=== PATIENT | male | born 1930 | race Hispanic/Latino ===

== ENCOUNTER 2018-06-18 10:51 | Emergency (ER) | payer MEDICARE ==
[2018-06-18 10:51] VITALS: PULSE 60; BMI 23.3
[2018-06-18 11:20] VITALS: TEMP 97.6
[2018-06-18] MEDS ORDERED: Albuterol-Ipratrop 3 mg / 0.5 (3 ml) UD INH STA (11:44)
[2018-06-18] MEDS ORDERED: Albuterol-Ipratrop 3 mg / 0.5 (3 ml) UD ONE (11:52)
[2018-06-18 12:16] LABS: VENOUS BLOOD GAS BASE EXCESS 8.3 mmol/L (0.0-2.0); VENOUS BLOOD GAS PCO2 47 mmHg (40-60); VENOUS BLOOD GAS PO2 11 mm/Hg (30-55); VENOUS BLOOD PH 7.46 (7.32-7.43)
[2018-06-18 12:17] LABS: BASO # 0.1 K/uL (0.0-0.2); BASO % 1.3 % (0.0-2.0); EOS # 0.1 K/uL (0.0-0.7); EOS % 0.7 % (0.0-4.0); HEMOGLOBIN 12.1 g/dL (12.0-18.0); LYMPH # 1.4 K/uL (1.0-4.3); LYMPH % 19.2 % (20.0-40.0); MEAN CELL VOLUME 95.4 fl (80.0-94.0); MEAN CORPUSCULAR HEMOGLOBIN 31.6 pg (27.0-31.0); MEAN CORPUSCULAR HGB CONC 33.1 g/dL (33.0-37.0); MEAN PLATELET VOLUME 9.3 fl (7.2-11.7); MONO # 0.8 K/uL (0.0-0.8); MONO % 10.4 % (0.0-10.0); NEUT # 5.1 K/uL (1.8-7.0); NEUT % 68.4 % (50.0-75.0); RBC 3.82 Mil/uL (4.40-5.90); RED CELL DISTRIBUTION WIDTH 15.7 % (11.5-14.5); WHITE BLOOD COUNT 7.5 K/uL (4.8-10.8)
[2018-06-18 12:23] LABS: INR 1.7; PROTHROMBIN TIME 19.2 Seconds (9.8-13.1)
[2018-06-18 12:26] LABS: PARTIAL THROMBOPLASTIN TIME 48.3 Seconds (25.6-37.1)
[2018-06-18 12:28] LABS: ABG ALLEN TEST YES; ARTERIAL BLOOD GAS HCO3 30.1 mmol/L (21-28); ARTERIAL BLOOD GAS O2 SAT 100.6 % (95-98); ARTERIAL BLOOD GAS PCO2 27 mm/Hg (35-45); ARTERIAL BLOOD GAS PH 7.61 (7.35-7.45); ARTERIAL BLOOD GAS PO2 124 mm/Hg (80-100); ARTERIAL BLOOD GAS TCO2 27.9 mmol/L (22-28)
[2018-06-18 12:41] LABS: TROPONIN I 0.025 ng/mL (0.00-0.120)
[2018-06-18 15:08] LABS: BASO # 0.1 K/uL (0.0-0.2); BASO % 0.8 % (0.0-2.0); EOS % 0.4 % (0.0-4.0); HEMOGLOBIN 11.5 g/dL (12.0-18.0); INR 1.8; LYMPH # 1.5 K/uL (1.0-4.3); LYMPH % 21.2 % (20.0-40.0); MEAN CELL VOLUME 94.5 fl (80.0-94.0); MEAN CORPUSCULAR HEMOGLOBIN 31.7 pg (27.0-31.0); MEAN CORPUSCULAR HGB CONC 33.5 g/dL (33.0-37.0); MEAN PLATELET VOLUME 9.7 fl (7.2-11.7); MONO # 0.7 K/uL (0.0-0.8); MONO % 10.5 % (0.0-10.0); NEUT # 4.7 K/uL (1.8-7.0); NEUT % 67.1 % (50.0-75.0); PROTHROMBIN TIME 20.3 Seconds (9.8-13.1); RBC 3.63 Mil/uL (4.40-5.90); RED CELL DISTRIBUTION WIDTH 15.4 % (11.5-14.5)
[2018-06-18 15:11] LABS: PARTIAL THROMBOPLASTIN TIME 45.4 Seconds (25.6-37.1)
[2018-06-18 15:18] LABS: ALB/GLOB RATIO 1.1 (1.0-2.1); ALBUMIN 3.8 g/dL (3.5-5.0)
--- NOTE | 2018-06-18 15:18 | RAD ---
Date of service: 06/18/2018 HISTORY: Chest pressure COMPARISON: 08/16/2014 FINDINGS: LUNGS: Chronic interstitial lung disease. PLEURA: Pleural plaques consistent with prior asbestos exposure. CARDIOVASCULAR: Atherosclerotic calcifications identified primarily aortic arch. No radiographic findings to suggest acute or significant cardiovascular disease. Position/ configuration of pacemaker device: Satisfactory. OSSEOUS STRUCTURES: No significant abnormalities. VISUALIZED UPPER ABDOMEN: Normal. OTHER FINDINGS: None. IMPRESSION: No active disease. No significant interval change compared to the prior examination(s).
[2018-06-18 15:23] LABS: TROPONIN I 0.021 ng/mL (0.00-0.120)
[2018-06-18 16:40] VITALS: RESP 20; O2SAT 96
[2018-06-18 17:30] VITALS: BP 133/68; PULSE 79
--- NOTE | 2018-06-18 17:49 | ED PDOC ---
HPI: SOB/CHF/COPD Time Seen by Provider: 06/18/18 11:33 Chief Complaint (Nursing): Shortness Of Breath Chief Complaint (Provider): SOB today History Per: Patient, Family History/Exam Limitations: no limitations Onset/Duration Of Symptoms: Hrs Current Symptoms Are (Timing): Still Present Exacerbating Factor(s): Other (at rest ) Associated Symptoms: denies: Fever, Chills, Sweating, Chest Pain, Bloody Cough, Productive Cough, Heart Racing, Leg/Calf Pain, Ankle/Leg Swelling, Dizziness, Light-headedness, Anxiety, Tingling In Hands Or Face, Musle Spasms In Hands Or Feet Additional Complaint(s): 88 yo male with HTN, CHF and history of mass in lung which was surgically removed 10 years ago presents for evaluation of SOB. PT states he has a dry cough today but he always has a slight cough due to smokign history. Pt states he also felt SOB this morning. Pt states he always feels a little SOB since his mass was removed but this morning it was worse. Pt denies chest pain, palpitations, sweating. Past Medical History Reviewed: Historical Data, Nursing Documentation, Vital Signs Vital Signs: Last Vital Signs Temp 97.6 F 06/18/18 11:19 Pulse 79 06/18/18 17:29 Resp 20 06/18/18 17:29 BP 133/68 06/18/18 17:29 Pulse Ox 96 06/18/18 17:29 - Medical History PMH: Atrial Fibrillation, CHF, HTN Denies: HIV, Chronic Kidney Disease - Surgical History Surgical History: Pacemaker - Family History Family History: States: No Known Family Hx - Living Arrangements Living Arrangements: With Family - Social History Current smoker - smoking cessation education provided: No Alcohol: None - Home Medications Home Medications: Ambulatory Orders Medication Instructions Recorded Febuxostat [Uloric] 40 mg PO DAILY 08/16/14 Finasteride 5 mg PO DAILY 08/16/14 Digoxin [Digitek] 125 mcg PO DAILY 06/18/18 Furosemide [Lasix] 40 mg PO DAILY 06/18/18 Lisinopril [Zestril] 5 mg PO DAILY 06/18/18 Warfarin [Coumadin] 2 mg PO Q48H 06/18/18 Warfarin [Coumadin] 3 mg PO Q48H 06/18/18 - Allergies Allergies/Adverse Reactions: Allergies Allergy/AdvReac Type Severity Reaction Status Date / Time No Known Allergies Allergy Verified 06/18/18 11:20 Review of Systems ROS Statement: Except As Marked, All Systems Reviewed And Found Negative Constitutional: Negative for: Fever, Chills Cardiovascular: Negative for: Chest Pain, Palpitations, Orthopnea Respiratory: Positive for: Cough, Shortness of Breath. Negative for: Pleuritic Pain, Sputum Gastrointestinal: Negative for: Nausea, Vomiting, Abdominal Pain Physical Exam - Reviewed Nursing Documentation Reviewed: Yes Vital Signs Reviewed: Yes - Physical Exam Appears: Positive for: Well, Non-toxic, No Acute Distress Head Exam: Positive for: ATRAUMATIC, NORMAL INSPECTION, NORMOCEPHALIC Skin: Positive for: Normal Color, Warm, DRY Eye Exam: Positive for: Normal appearance ENT: Positive for: Normal ENT Inspection Neck: Positive for: Normal, Painless ROM Cardiovascular/Chest: Positive for: Regular Rate, Rhythm Respiratory: Positive for: Normal Breath Sounds. Negative for: Accessory Muscle Use, Respiratory Distress Gastrointestinal/Abdominal: Positive for: Normal Exam, Soft Back: Positive for: Normal Inspection Extremity: Positive for: Normal ROM Neurologic/Psych: Positive for: Alert, Oriented - Laboratory Results Result Diagrams: 06/18/18 14:00 06/18/18 14:00 - ECG O2 Sat by Pulse Oximetry: 96 Medical Decision Making Medical Decision Making: CBC normal, CXR without acute cardiopulmonary disease. Elevated pro BNP. Troponin negative. Pt seen and examined with Dr. Manzanares. Discussed giving additional dose of lasix and possible observation. Pt seen and examined by Dr. Randhawa. Pt stable for discharge. PT reports feeling better on re-evaluation. oxygen 97-98% on room air. Called Dr. Hill for f/u. 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 Disposition - Clinical Impression Clinical Impression: CHF (congestive heart failure) - Patient ED Disposition Is Patient to be Admitted: No Counseled Patient/Family Regarding: Diagnosis, Need For Followup - Disposition Referrals: Adalberto Hill MD [Family Provider] - Disposition: Routine/Home Disposition Time: 17:53 Condition: GOOD Instructions: Heart Healthy Diet, Heart Failure and Atrial Fibrillation Print Language: TELUGU
--- NOTE | 2018-06-18 17:57 | CP.PCM.CON ---
History of Present Illness - History of Present Illness History of Present Illness: CC: shortness of breath HPI: This is a francis 88 male PMH CHF, HTN, interstitial lung dz? presents to the ED with a one day history of worsening dry cough, with associated mild dyspnea. Upon arrival to ED, patient had a 2L NC O2 requirement to maintain sats, however was breathing comfortably, without any signs of distress, speaking in full sentences without difficulty, no peripheral edema, no JVD. Patient BNP was found to be appx 2000, and was administered Lasix 40 IV ONCE. He was reevaluated a couple hours later with significant improved, no longer felt dyspneic, good UOP, and no longer required O2. Patient CXR also did not d emonstrate any acute pathology. Patient is HD stable, in no acute distress, and symptoms have resolved. Patient is stable to be discharged with his home medications, and advised to follow up with primary care physician within one week. ROS: per HPI all other systems reviewed and negative. Past Patient History - Infectious Disease Hx of Infectious Diseases: None - Tetanus Immunizations Tetanus Immunization: Unknown - Past Medical History & Family History Past Medical History?: Yes - Past Social History Smoking Status: Former Smoker - CARDIAC Hx Atrial Fibrillation: Yes Hx Congestive Heart Failure: Yes Hx Hypertension: Yes Hx Pacemaker: Yes - PULMONARY Hx Lung Cancer: Yes (Left Upper Lobectomy, 4 yrs ago) - NEUROLOGICAL Hx Neurological Disorder: No - HEENT Hx HEENT Problems: No - RENAL Hx Chronic Kidney Disease: No - ENDOCRINE/METABOLIC Hx Endocrine Disorders: No - HEMATOLOGICAL/ONCOLOGICAL Hx Human Immunodeficiency Virus (HIV): No - INTEGUMENTARY Hx Dermatological Problems: No - MUSCULOSKELETAL/RHEUMATOLOGICAL Hx Musculoskeletal Disorders: No Hx Falls: No - GASTROINTESTINAL Hx Gastrointestinal Disorders: No - GENITOURINARY/GYNECOLOGICAL Hx Genitourinary Disorders: Yes Hx Prostate Problems: Yes (on Proscar) - PSYCHIATRIC Hx Psychophysiologic Disorder: No Hx Substance Use: No - SURGICAL HISTORY Hx Surgeries: Yes Hx Pulmonary Surgery: Yes (lobectomy 4 years ago) Other/Comment: Left knee procedure, pacemaker - ANESTHESIA Hx Anesthesia: Yes Hx Anesthesia Reactions: No Meds Allergies/Adverse Reactions: Allergies Allergy/AdvReac Type Severity Reaction Status Date / Time No Known Allergies Allergy Verified 06/18/18 11:20 Physical Exam - Constitutional Appears: Non-toxic, No Acute Distress - Head Exam Head Exam: ATRAUMATIC, NORMOCEPHALIC - Eye Exam Eye Exam: EOMI, Normal appearance, PERRL Pupil Exam: NORMAL ACCOMODATION - ENT Exam ENT Exam: Mucous Membranes Moist, Normal Oropharynx - Respiratory Exam Respiratory Exam: Clear to Auscultation Bilateral, NORMAL BREATHING PATTERN - Cardiovascular Exam Cardiovascular Exam: RRR, +S1, +S2 - GI/Abdominal Exam GI & Abdominal Exam: Normal Bowel Sounds, Soft - Extremities Exam Extremities exam: Positive for: normal capillary refill, pedal pulses present - Back Exam Back exam: absent: CVA tenderness (L), CVA tenderness (R) - Neurological Exam Neurological exam: Alert, Oriented x3 - Psychiatric Exam Psychiatric exam: Normal Affect, Normal Mood - Skin Skin Exam: Dry, Warm Results - Vital Signs Recent Vital Signs: Last Vital Signs Temp 97.6 F 06/18/18 11:19 Pulse 79 06/18/18 17:29 Resp 20 06/18/18 17:29 BP 133/68 06/18/18 17:29 Pulse Ox 96 06/18/18 17:49 - Labs Result Diagrams: 06/18/18 14:00 06/18/18 14:00 Labs: Laboratory Results - last 24 hr 06/18/18 06/18/18 06/18/18 12:05 12:05 12:05 WBC 7.5 RBC 3.82 L Hgb 12.1 Hct 36.4 MCV 95.4 H MCH 31.6 H MCHC 33.1 RDW 15.7 H Plt Count 172 MPV 9.3 Neut % (Auto) 68.4 Lymph % (Auto) 19.2 L [place] % (Auto) 10.4 H Eos % (Auto) 0.7 Baso % (Auto) 1.3 Neut # (Auto) 5.1 Lymph # (Auto) 1.4 [place] # (Auto) 0.8 Eos # (Auto) 0.1 Baso # (Auto) 0.1 PT 19.2 H INR 1.7 APTT 48.3 H pCO2 pO2 HCO3 ABG pH ABG Total CO2 ABG O2 Saturation ABG Base Excess Vasquez Test ABG Potassium VBG pH VBG pCO2 VBG HCO3 VBG Total CO2 VBG O2 Sat (Calc) VBG Base Excess VBG Potassium A-a O2 Difference Sodium Chloride Glucose Lactate FiO2 Blood Gas Comments Crit Value Called To Crit Value Called By Crit Value Read Back Blood Gas Notified Time Potassium Carbon Dioxide Anion Gap BUN Creatinine Est GFR ( Amer) Est GFR (Non-Af Amer) Random Glucose Calcium Phosphorus 2.4 L Magnesium 2.2 Total Bilirubin AST ALT Alkaline Phosphatase Troponin I 0.0250 NT-Pro-B Natriuret Pep 2320 H Total Protein Albumin Globulin Albumin/Globulin Ratio Arterial Blood Potassium Venous Blood Potassium 06/18/18 06/18/18 06/18/18 12:09 12:20 14:00 WBC RBC Hgb Hct MCV MCH MCHC RDW Plt Count MPV Neut % (Auto) Lymph % (Auto) [place] % (Auto) Eos % (Auto) Baso % (Auto) Neut # (Auto) Lymph # (Auto) [place] # (Auto) Eos # (Auto) Baso # (Auto) PT INR APTT pCO2 27 L pO2 11 L 124 H HCO3 30.1 H ABG pH 7.61 H* ABG Total CO2 27.9 ABG O2 Saturation 100.6 H ABG Base Excess 6.5 H Vasquez Test Yes ABG Potassium 4.3 VBG pH 7.46 H VBG pCO2 47 VBG HCO3 29.1 VBG Total CO2 34.8 H VBG O2 Sat (Calc) 18.2 L VBG Base Excess 8.3 H VBG Potassium 5.4 H A-a O2 Difference 42.0 Sodium 139.0 137.0 139 Chloride 103.0 106.0 103 Glucose 59 L 101 Lactate 2.5 H 1.8 FiO2 21.0 28.0 Blood Gas Comments Lac=2.5 Ph=7.61 Crit Value Called To julio Olivas haviva Crit Value Called By Crit Value Read Back Y Y Blood Gas Notified Time 1216 1227 Potassium 4.4 Carbon Dioxide 25 Anion Gap 15 BUN 30 H Creatinine 1.5 Est GFR ( Amer) 54 Est GFR (Non-Af Amer) 44 Random Glucose 101 Calcium 9.0 Phosphorus 1.6 L Magnesium 2.0 Total Bilirubin 0.6 AST 31 ALT 20 L D Alkaline Phosphatase 63 Troponin I 0.0210 NT-Pro-B Natriuret Pep 2200 H Total Protein 7.4 Albumin 3.8 Globulin 3.6 Albumin/Globulin Ratio 1.1 Arterial Blood Potassium 4.3 Venous Blood Potassium 5.4 H 06/18/18 06/18/18 14:00 14:00 WBC 7.0 RBC 3.63 L Hgb 11.5 L Hct 34.3 L MCV 94.5 H MCH 31.7 H MCHC 33.5 RDW 15.4 H Plt Count 160 MPV 9.7 Neut % (Auto) 67.1 Lymph % (Auto) 21.2 [place] % (Auto) 10.5 H Eos % (Auto) 0.4 Baso % (Auto) 0.8 Neut # (Auto) 4.7 Lymph # (Auto) 1.5 [place] # (Auto) 0.7 Eos # (Auto) 0.0 Baso # (Auto) 0.1 PT 20.3 H INR 1.8 APTT 45.4 H pCO2 pO2 HCO3 ABG pH ABG Total CO2 ABG O2 Saturation ABG Base Excess Vasquez Test ABG Potassium VBG pH VBG pCO2 VBG HCO3 VBG Total CO2 VBG O2 Sat (Calc) VBG Base Excess VBG Potassium A-a O2 Difference Sodium Chloride Glucose Lactate FiO2 Blood Gas Comments Crit Value Called To Crit Value Called By Crit Value Read Back Blood Gas Notified Time Potassium Carbon Dioxide Anion Gap BUN Creatinine Est GFR ( Amer) Est GFR (Non-Af Amer) Random Glucose Calcium Phosphorus Magnesium Total Bilirubin AST ALT Alkaline Phosphatase Troponin I NT-Pro-B Natriuret Pep Total Protein Albumin Globulin Albumin/Globulin Ratio Arterial Blood Potassium Venous Blood Potassium Assessment & Plan - Assessment and Plan (Free Text) Plan: This is a francis 88 male PMH CHF, HTN, interstitial lung dz? presents to the ED with a one day history of worsening dry cough, with associated mild dyspnea. Upon arrival to ED, patient had a 2L NC O2 requirement to maintain sats, however was breathing comfortably, without any signs of distress, speaking in full sentences without difficulty, no peripheral edema, no JVD. Patient BNP was found to be appx 2000, and was administered Lasix 40 IV ONCE. He was reevaluated a couple hours later with significant improved, no longer felt dyspneic, good UOP, and no longer requires O2 98% on RA. Patient CXR also did not demonstrate any acute pathology. Patient is HD stable, in no acute distress, and symptoms have resolved. Patient is stable to be discharged with his home medications, and advised to follow up with primary care physician within one week.
--- NOTE | 2018-06-18 19:22 | CARD ---
APPROVED REPORT Date of service: 06/18/2018 EKG Measurement Heart [id number] <Conclusion> Ventricular-paced rhythm with frequent premature ventricular complexes Abnormal ECG
== END 2018-06-18 18:39 | disposition home or self-care (01) ==
LOC: H.ER 10:51
DX: I50.9 Heart failure, unspecified (principal); I11.0 Hypertensive heart disease with heart failure; Z79.01 Long term (current) use of anticoagulants; Z95.0 Presence of cardiac pacemaker
CPT/HCPCS: 36600; 71045; 80053; 82803; 83735; 83880; 84100; 84484; 85025; 85610; 85730; 93005; 94640; 96374; 99284; J1940